=== PATIENT | male | born 1935 | race Caucasian/White ===

== ENCOUNTER 2020-11-06 11:20 | Inpatient (IN) | payer MEDICARE, OTHER ==
[2020-11-06] MEDS ORDERED: LACTATED RINGERS SOLUTION 1000 ML INFUS.BAG IV ONE (12:37)
[2020-11-06 12:43] LABS: BASO % 1.1 % (0-2.0); EOS % 2.1 % (0-4.5); HEMATOCRIT 46.1 % (35.4-49); HEMOGLOBIN 15.5 GM/dL (11.7-16.9); LYMPH % 8.9 % (8-40); MCH 30.3 pg (25.7-33.7); MCHC 33.6 g/dl (32.0-35.9); MEAN CELL VOLUME 90.1 fl (80-96); MEAN PLT VOLUME 10.1 fl (7.5-11.1); MONO % 7.8 % (3.8-10.2); NEUT % 80.1 % (42.8-82.8); PLATELET COUNT 239 K/MM3 (134-434); RBC 5.12 M/mm3 (4.00-5.60); RDW 13.6 % (11.9-15.9); VENOUS O2 SATURATION 87.6 % (70-80); VENOUS PCO2 36.1 mmHg (38-52); VENOUS PH 7.42 (7.310-7.410); WHITE BLOOD COUNT 12.4 K/mm3 (4.0-10.0)
[2020-11-06 12:52] LABS: INR 1.04 (0.83-1.09); PROTHROMBIN TIME (PATIENT) 12.6 SEC (9.7-13.0)
[2020-11-06 12:54] LABS: ACTIVATED PTT 31.2 SECONDS (25.2-36.5)
[2020-11-06 13:09] LABS: ALBUMIN 3.7 g/dl (3.4-5.0); BLOOD UREA NITROGEN 28.3 mg/dL (7-18); CALCIUM 10.4 mg/dL (8.5-10.1); MAGNESIUM 2.3 mg/dL (1.8-2.4)
[2020-11-06 13:13] LABS: CREATININE 1.2 mg/dL (0.55-1.3)
[2020-11-06 13:14] LABS: BILIRUBIN,TOTAL 0.6 mg/dL (0.2-1)
[2020-11-06 13:18] LABS: N-TERMINAL BNP 63.4 pg/ml (5-450)
[2020-11-06] MEDS ORDERED: ALBUTEROL SO4 2.5/IPRATROPIUM 0.5 INH SOL 3 ML VIAL.NEB. NEB PRN (19:06)
[2020-11-06] MEDS ORDERED: ENOXAPARIN NA (PORCINE) 40 MG/0.4 ML DISP.SYRIN SQ ONE (19:22)
[2020-11-06] MEDS ORDERED: PANTOPRAZOLE SODIUM 40 MG/100 ML BAG IVPB ONE (19:22)
[2020-11-06] MEDS ORDERED: PANTOPRAZOLE 40 MG TABLET ONE (19:23)
[2020-11-06] MEDS: PANTOPRAZOLE 40 MG TABLET PO SCH (19:30)
[2020-11-06] MEDS: ENOXAPARIN NA (PORCINE) 40 MG/0.4 ML DISP.SYRIN SQ SCH (19:30)
[2020-11-06] MEDS: D5-1/2NS+10 MEQ KCL - 10 MEQ/1,000 ML INFUS.BAG IV SCH ×2 (19:30→23:50)
[2020-11-07 00:45] VITALS: BMI 24.4
[2020-11-07 02:47] LABS: URINE APPEARANCE CLEAR; URINE COLOR YELLOW; URINE GLUCOSE (UA) NEGATIVE (NEGATIVE)
[2020-11-07 02:48] LABS: URINE BILIRUBIN NEGATIVE (NEGATIVE); URINE KETONE NEGATIVE (NEGATIVE); URINE LEUK ESTERASE NEGATIVE (NEGATIVE); URINE NITRITE NEGATIVE (NEGATIVE); URINE PROTEIN NEGATIVE (NEGATIVE); URINE RBC 8 /uL (0-23.9)
[2020-11-07 02:49] LABS: EPI CELLS 15 /uL (0-25.1); HYALINE CASTS 1 /uL (0-3.1); URINE BACTERIA 6 /uL (0-1359); URINE WBC 16 /uL (0-25.8)
[2020-11-07] MEDS ORDERED: ALBUTEROL SO4 HFA INHALER IH PRN (08:48)
[2020-11-07] MEDS: ENOXAPARIN NA (PORCINE) 40 MG/0.4 ML DISP.SYRIN SQ SCH (09:49)
[2020-11-07] MEDS: PANTOPRAZOLE 40 MG TABLET PO SCH (09:49)
[2020-11-07] MEDS: D5-1/2NS+10 MEQ KCL - 10 MEQ/1,000 ML INFUS.BAG IV SCH ×2 (09:49→17:11)
[2020-11-07] MEDS: METOPROLOL TARTRATE 25 MG TABLET (FP) PO SCH ×2 (09:49→22:27)
[2020-11-07 09:53] LABS: BASO % 0.6 % (0-2.0); EOS % 3.1 % (0-4.5); HEMATOCRIT 40.6 % (35.4-49); HEMOGLOBIN 13.8 GM/dL (11.7-16.9); LYMPH % 16.7 % (8-40); MCH 30.7 pg (25.7-33.7); MEAN CELL VOLUME 90.4 fl (80-96); MEAN PLT VOLUME 9.8 fl (7.5-11.1); MONO % 6.5 % (3.8-10.2); NEUT % 73.1 % (42.8-82.8); PLATELET COUNT 211 K/MM3 (134-434); RBC 4.49 M/mm3 (4.00-5.60); RDW 13.7 % (11.9-15.9); WHITE BLOOD COUNT 9.5 K/mm3 (4.0-10.0)
[2020-11-07 09:56] LABS: ALBUMIN 3.1 g/dl (3.4-5.0); BLOOD UREA NITROGEN 22.9 mg/dL (7-18)
[2020-11-07 09:59] LABS: CREATININE 0.7 mg/dL (0.55-1.3)
[2020-11-07 10:00] LABS: BILIRUBIN,TOTAL 0.4 mg/dL (0.2-1); TOT PROT 5.8 g/dl (6.4-8.2)
[2020-11-07] MEDS ORDERED: ERGOCALCIFEROL (VIT D2) 50,000 UNIT (1.25 MG) CAPSULE PO SCH (10:00)
[2020-11-07] MEDS: methylPREDNISolone NA SUCC 40 MG/1 ML VIAL IVPUSH SCH ×2 (12:07→17:11)
[2020-11-07] MEDS: FLUTICASONE/SALMETEROL 100 MCG/50 MCG DISKUS IH SCH ×2 (12:07→22:25)
[2020-11-07] MEDS: SACUBITRIL/VALSARTAN 97 MG-103 MG TABLET PO SCH ×2 (12:07→22:26)
[2020-11-07] MEDS: PREGABALIN 100 MG CAPSULE PO SCH ×2 (16:23→22:27)
[2020-11-07] MEDS: ALBUTEROL SO4 2.5/IPRATROPIUM 0.5 INH SOL 3 ML VIAL.NEB. NEB SCH (20:55)
[2020-11-07] MEDS ORDERED: PT OWN MED DRAWER 7, Y5N ONE (21:09)
[2020-11-07] MEDS: DOCUSATE SODIUM 100 MG CAPSULE (FP) PO SCH (22:26)
[2020-11-07] MEDS: NORTRIPTYLINE HCL 25 MG CAPSULE PO SCH (22:27)
[2020-11-08] MEDS: methylPREDNISolone NA SUCC 40 MG/1 ML VIAL IVPUSH SCH ×3 (01:23→17:23)
[2020-11-08] MEDS: PREGABALIN 100 MG CAPSULE PO SCH ×3 (06:05→21:15)
[2020-11-08] MEDS: ALBUTEROL SO4 2.5/IPRATROPIUM 0.5 INH SOL 3 ML VIAL.NEB. NEB SCH ×5 (08:05→21:18)
[2020-11-08 09:41] LABS: BASO % 0.2 % (0-2.0); HEMATOCRIT 42.6 % (35.4-49); HEMOGLOBIN 14.1 GM/dL (11.7-16.9); LYMPH % 3.4 % (8-40); MCH 30.2 pg (25.7-33.7); MCHC 33.2 g/dl (32.0-35.9); MEAN CELL VOLUME 91.1 fl (80-96); MEAN PLT VOLUME 10.3 fl (7.5-11.1); MONO % 2.2 % (3.8-10.2); NEUT % 94.2 % (42.8-82.8); PLATELET COUNT 217 K/MM3 (134-434); RBC 4.67 M/mm3 (4.00-5.60); RDW 13.5 % (11.9-15.9); WHITE BLOOD COUNT 15.5 K/mm3 (4.0-10.0)
[2020-11-08 10:03] LABS: CALCIUM 9.7 mg/dL (8.5-10.1)
[2020-11-08 10:04] LABS: BLOOD UREA NITROGEN 15.1 mg/dL (7-18)
[2020-11-08 10:07] LABS: CREATININE 0.7 mg/dL (0.55-1.3)
[2020-11-08 10:13] LABS: ANISOCYTOSIS 0; MACROCYTOSIS 0; PLATELET ESTIMATE NORMAL
[2020-11-08] MEDS: ENOXAPARIN NA (PORCINE) 40 MG/0.4 ML DISP.SYRIN SQ SCH (10:21)
[2020-11-08] MEDS: PANTOPRAZOLE 40 MG TABLET PO SCH (10:22)
[2020-11-08] MEDS: TAMSULOSIN HCL 0.4 MG CAP PO SCH (10:22)
[2020-11-08] MEDS: METOPROLOL TARTRATE 25 MG TABLET (FP) PO SCH ×2 (10:22→21:15)
[2020-11-08] MEDS: FLUTICASONE/SALMETEROL 100 MCG/50 MCG DISKUS IH SCH ×2 (10:22→21:15)
[2020-11-08] MEDS: SACUBITRIL/VALSARTAN 97 MG-103 MG TABLET PO SCH ×2 (10:23→21:16)
[2020-11-08] MEDS: D5-1/2NS+10 MEQ KCL - 10 MEQ/1,000 ML INFUS.BAG IV SCH (10:27)
[2020-11-08] MEDS ORDERED: PT OWN MED DRAWER 7, Y5N ONE (21:01)
[2020-11-08] MEDS: NORTRIPTYLINE HCL 25 MG CAPSULE PO SCH (21:15)
[2020-11-08] MEDS: DOCUSATE SODIUM 100 MG CAPSULE (FP) PO SCH (21:15)
[2020-11-09] MEDS: methylPREDNISolone NA SUCC 40 MG/1 ML VIAL IVPUSH SCH (02:22)
[2020-11-09] MEDS: PREGABALIN 100 MG CAPSULE PO SCH ×3 (06:13→22:07)
[2020-11-09] MEDS: D5-1/2NS+10 MEQ KCL - 10 MEQ/1,000 ML INFUS.BAG IV SCH ×2 (06:21→09:49)
[2020-11-09] MEDS: ALBUTEROL SO4 2.5/IPRATROPIUM 0.5 INH SOL 3 ML VIAL.NEB. NEB SCH ×4 (07:30→20:29)
[2020-11-09 09:13] LABS: BASO % 0.2 % (0-2.0); HEMATOCRIT 39.9 % (35.4-49); HEMOGLOBIN 13.5 GM/dL (11.7-16.9); LYMPH % 5.8 % (8-40); MCH 30.7 pg (25.7-33.7); MCHC 33.8 g/dl (32.0-35.9); MEAN CELL VOLUME 90.8 fl (80-96); MEAN PLT VOLUME 10.3 fl (7.5-11.1); MONO % 1.8 % (3.8-10.2); NEUT % 92.2 % (42.8-82.8); PLATELET COUNT 186 K/MM3 (134-434); RBC 4.39 M/mm3 (4.00-5.60); RDW 13.7 % (11.9-15.9); WHITE BLOOD COUNT 12.1 K/mm3 (4.0-10.0)
[2020-11-09 09:26] LABS: BLOOD UREA NITROGEN 15.2 mg/dL (7-18); CALCIUM 9.3 mg/dL (8.5-10.1)
[2020-11-09 09:30] LABS: CREATININE 0.6 mg/dL (0.55-1.3)
[2020-11-09] MEDS: METOPROLOL TARTRATE 25 MG TABLET (FP) PO SCH ×2 (09:48→21:58)
[2020-11-09] MEDS: ENOXAPARIN NA (PORCINE) 40 MG/0.4 ML DISP.SYRIN SQ SCH (09:48)
[2020-11-09] MEDS: SACUBITRIL/VALSARTAN 97 MG-103 MG TABLET PO SCH ×2 (09:49→21:58)
[2020-11-09] MEDS: TAMSULOSIN HCL 0.4 MG CAP PO SCH (09:49)
[2020-11-09] MEDS: FLUTICASONE/SALMETEROL 100 MCG/50 MCG DISKUS IH SCH ×2 (09:49→21:58)
[2020-11-09] MEDS: PANTOPRAZOLE 40 MG TABLET PO SCH (09:52)
[2020-11-09 13:39] LABS: ANISOCYTOSIS 0; HELMET CELLS 0; HOWELL-JOLLY BODIES 0; MACROCYTOSIS 0; OVALOCYTE 0; PLATELET ESTIMATE NORMAL; ROULEAU 0; SICKELED CELLS 0; TARGET CELLS 0; TEAR DROP CELLS 0; TOXIC GRANULATION 0
[2020-11-09] MEDS ORDERED: PT OWN MED DRAWER 7, Y5N ONE (21:30)
[2020-11-09] MEDS: DOCUSATE SODIUM 100 MG CAPSULE (FP) PO SCH (21:57)
[2020-11-09] MEDS: NORTRIPTYLINE HCL 25 MG CAPSULE PO SCH (21:58)
[2020-11-10] MEDS: D5-1/2NS+10 MEQ KCL - 10 MEQ/1,000 ML INFUS.BAG IV SCH ×2 (04:16→09:39)
[2020-11-10] MEDS: PREGABALIN 100 MG CAPSULE PO SCH ×3 (06:37→21:27)
[2020-11-10] MEDS: ALBUTEROL SO4 2.5/IPRATROPIUM 0.5 INH SOL 3 ML VIAL.NEB. NEB SCH ×4 (07:25→20:30)
[2020-11-10 08:28] LABS: BASO % 1.1 % (0-2.0); EOS % 2.2 % (0-4.5); HEMATOCRIT 38.8 % (35.4-49); HEMOGLOBIN 13.2 GM/dL (11.7-16.9); LYMPH % 21.8 % (8-40); MCH 30.9 pg (25.7-33.7); MEAN PLT VOLUME 10.5 fl (7.5-11.1); NEUT % 66.9 % (42.8-82.8); PLATELET COUNT 177 K/MM3 (134-434); RBC 4.26 M/mm3 (4.00-5.60); RDW 13.4 % (11.9-15.9); WHITE BLOOD COUNT 8.7 K/mm3 (4.0-10.0)
[2020-11-10 08:57] LABS: CALCIUM 9.2 mg/dL (8.5-10.1)
[2020-11-10 08:58] LABS: BLOOD UREA NITROGEN 11.4 mg/dL (7-18)
[2020-11-10 09:00] LABS: CREATININE 0.5 mg/dL (0.55-1.3)
[2020-11-10] MEDS ORDERED: PT OWN MED DRAWER 7, Y5N ONE (09:20)
[2020-11-10] MEDS: METOPROLOL TARTRATE 25 MG TABLET (FP) PO SCH ×2 (09:37→21:27)
[2020-11-10] MEDS: TAMSULOSIN HCL 0.4 MG CAP PO SCH (09:37)
[2020-11-10] MEDS: PANTOPRAZOLE 40 MG TABLET PO SCH (09:37)
[2020-11-10] MEDS: ENOXAPARIN NA (PORCINE) 40 MG/0.4 ML DISP.SYRIN SQ SCH (09:38)
[2020-11-10] MEDS: FLUTICASONE/SALMETEROL 100 MCG/50 MCG DISKUS IH SCH ×2 (09:39→21:27)
[2020-11-10] MEDS: SACUBITRIL/VALSARTAN 97 MG-103 MG TABLET PO SCH ×2 (09:57→21:27)
[2020-11-10] MEDS: SPIRONOLACTONE 25 MG TABLET PO SCH (09:57)
[2020-11-10] MEDS: DOCUSATE SODIUM 100 MG CAPSULE (FP) PO SCH (21:27)
[2020-11-10] MEDS: NORTRIPTYLINE HCL 25 MG CAPSULE PO SCH (21:28)
[2020-11-11] MEDS: D5-1/2NS+10 MEQ KCL - 10 MEQ/1,000 ML INFUS.BAG IV SCH ×2 (00:53→09:46)
[2020-11-11] MEDS: PREGABALIN 100 MG CAPSULE PO SCH ×2 (05:50→15:05)
[2020-11-11] MEDS: ALBUTEROL SO4 0.083% IH SOL 2.5 MG/3 ML VIAL.NEB. NEB PRN ×2 (07:45→11:50)
[2020-11-11] MEDS: SPIRONOLACTONE 25 MG TABLET PO SCH (09:47)
[2020-11-11] MEDS: METOPROLOL TARTRATE 25 MG TABLET (FP) PO SCH (09:47)
[2020-11-11] MEDS: TAMSULOSIN HCL 0.4 MG CAP PO SCH (09:47)
[2020-11-11] MEDS: PANTOPRAZOLE 40 MG TABLET PO SCH (09:47)
[2020-11-11] MEDS: SACUBITRIL/VALSARTAN 97 MG-103 MG TABLET PO SCH (09:48)
[2020-11-11] MEDS: ENOXAPARIN NA (PORCINE) 40 MG/0.4 ML DISP.SYRIN SQ SCH (09:48)
[2020-11-11] MEDS: FLUTICASONE/SALMETEROL 100 MCG/50 MCG DISKUS IH SCH (09:49)
[2020-11-11] MEDS ORDERED: TIOTROPIUM BROMIDE 2.5 MCG (SPIRIVA) RESPIMAT INHALER IH SCH (13:15)
[2020-11-11 13:42] VITALS: BP 128/75; PULSE 71; TEMP 98.4
== END 2020-11-11 14:07 | DRG 189 ==
LOC: JER 11:20 → JERBED 17:02 → J5S 23:24
PROVIDERS: ADMIT Internal Medicine; ATTEND Internal Medicine
DX: J96.01 Acute respiratory failure with hypoxia (principal); I50.23 Acute on chronic systolic (congestive) heart failure; J44.1 Chronic obstructive pulmonary disease with (acute) exacerbation; J44.9 Chronic obstructive pulmonary disease, unspecified; I44.7 Left bundle-branch block, unspecified; E88.09 Other disorders of plasma-protein metabolism, not elsewhere classified; N40.0 Benign prostatic hyperplasia without lower urinary tract symptoms; B02.9 Zoster without complications; I27.20 Pulmonary hypertension, unspecified; E77.8 Other disorders of glycoprotein metabolism
CPT/HCPCS: 36415; 71046-TC-FY; 71275-TC; 80048; 80053; 80061; 81003; 82803; 83036; 83721; 83735; 83880; 84439; 84443; 84484; 85025; 85379; 85610; 85730; 93005; 93010; 93306-TC; 94010; 94640; 94760; 94761; 97116-GP; 97162-GP; 99285-25; C9803; Q9967; U0003; U0005